=== PATIENT | male | born 1970 | race Caucasian/White ===

== ENCOUNTER 2018-09-09 18:08 | Emergency (ER) | payer OTHER ==
[~2018-09-09] VITALS: Ht 185.4 cm; Wt 86.4 kg
[2018-09-09 18:14] VITALS: Ht 185.4 cm; Wt 86.4 kg
[2018-09-09] MEDS ORDERED: AUGMENTIN 875-11 TAB PO (18:59)
[2018-09-09] MEDS ORDERED: CIPRODEX OTIC7.5 ML LEFT EAR (18:59)
[2018-09-09 19:12] VITALS: BP 149/95
== END 2018-09-09 19:13 | disposition home or self-care (01) ==
LOC: D.ER 18:08
DX: H60.502 Unspecified acute noninfective otitis externa, left ear (principal); H66.92 Otitis media, unspecified, left ear; F17.200 Nicotine dependence, unspecified, uncomplicated

== ENCOUNTER → 2020-02-24 13:35 | Outpatient (CLI) | payer MEDICAID ==
[2018-09-09 18:14] VITALS: BMI 25.1
[~2020-02-24 13:35] MED LIST: AUGMENTIN 875-11 TAB PO; CIPRODEX OTIC7.5 ML LEFT EAR
== END | disposition home or self-care (01) ==
LOC: D.US 13:35
PROVIDERS: ATTEND Family Medicine
DX: R60.0 Localized edema (principal)

== ENCOUNTER → 2020-03-15 09:53 | Outpatient (CLI) | payer MEDICAID ==
[2018-09-09 18:14] VITALS: BMI 25.1
[2020-03-15 10:20] LABS: BASOPHILS 0.3 % (0-2); EOSINOPHILS 1.3 % (0-7); HEMATOCRIT 43.6 % (42.0-54.0); HEMOGLOBIN 15.5 g/dL (13.5-17.5); IMMATURE GRANULOCYTES 0.2 % (0-5); LYMPHOCYTES 29.8 % (15-50); MCHC 35.6 g/dL (31.0-37.0); MCV 92.8 fL (80.0-100.0); MEAN PLATELET VOLUME 9.4 fL (7.4-10.4); MONOCYTES 6.7 % (2-11); NEUTROPHILS 61.7 % (40-80); PLATELET COUNT 154 10x3/uL (130-400); RDW 12.7 % (11.5-14.5); WBC 10.4 10x3/uL (4.8-10.8)
[2020-03-15 10:51] LABS: ALBUMIN 3.8 g/dL (3.4-5.0); ANION GAP 10.5 mmol/L (8-16); BILIRUBIN - TOTAL 1.02 mg/dL (0.2-1.3); CALCIUM 8.9 mg/dL (8.5-10.1); CARBON DIOXIDE 27.5 mmol/L (21.0-32.0); CHOL - HDL RATIO 5.7 ratio (2.3-4.9); CREATININE - SERUM 1.2 mg/dL (0.6-1.3); LDL-HDL RATIO 2.9 ratio (1.5-3.5); PROTEIN - SERUM 7.3 g/dL (6.4-8.2); THYROID STIMULATING HORMONE 2.6 uIU/mL (0.36-3.74)
== END | disposition home or self-care (01) ==
LOC: D.LAB 09:53
PROVIDERS: ATTEND Family Medicine
DX: I10 Essential (primary) hypertension (principal); R60.0 Localized edema; R07.9 Chest pain, unspecified; Z00.01 Encounter for general adult medical examination with abnormal findings; Z12.5 Encounter for screening for malignant neoplasm of prostate

== ENCOUNTER → 2020-03-21 10:09 | Outpatient (CLI) | payer MEDICAID ==
[2018-09-09 18:14] VITALS: BMI 25.1
== END | disposition home or self-care (01) ==
LOC: D.CT 10:09
PROVIDERS: ATTEND Family Medicine
DX: R59.0 Localized enlarged lymph nodes (principal)

== ENCOUNTER 2020-05-16 12:06 | Emergency (ER) | payer MEDICAID ==
[~2020-05-16] VITALS: Ht 185.4 cm; Wt 84.1 kg
[2020-05-16 12:21] VITALS: Ht 185.4 cm; Wt 84.1 kg
[2020-05-16] MEDS ORDERED: HTN MED? (12:24)
[2020-05-16 14:18] LABS: BASOPHILS 0.4 % (0-2); EOSINOPHILS 0.3 % (0-7); HEMATOCRIT 37.5 % (42.0-54.0); HEMOGLOBIN 13.7 g/dL (13.5-17.5); IMMATURE GRANULOCYTES 0.3 % (0-5); LYMPHOCYTES 16.4 % (15-50); MCH 33.6 pg (26.0-34.0); MCHC 36.5 g/dL (31.0-37.0); MCV 91.9 fL (80.0-100.0); MEAN PLATELET VOLUME 9.8 fL (7.4-10.4); MONOCYTES 6.7 % (2-11); NEUTROPHILS 75.9 % (40-80); PLATELET COUNT 141 10x3/uL (130-400); RBC 4.08 10x6/uL (4.20-6.10); RDW 12.7 % (11.5-14.5); WBC 7.9 10x3/uL (4.8-10.8)
[2020-05-16 14:47] LABS: ALBUMIN 3.8 g/dL (3.4-5.0); ALKALINE PHOSPHATASE 107 U/L (30-120); ALT (SGPT) 117 U/L (10-68); BILIRUBIN - TOTAL 0.99 mg/dL (0.2-1.3); CALC OSMOLALITY 267 mosm/kg (275-300); CALCIUM 9.2 mg/dL (8.5-10.1); CARBON DIOXIDE 32.4 mmol/L (21.0-32.0); CHLORIDE - SERUM 95 mmol/L (98-107); CKMB 1.1 U/L (0.0-3.6); CREATINE KINASE 466 UL (21-232); CREATININE - SERUM 1.4 mg/dL (0.6-1.3); GLUCOSE 126 mg/dL (74-106); PROTEIN - SERUM 7.3 g/dL (6.4-8.2); SODIUM 133 mmol/L (136-145); UREA NITROGEN 13 mg/dL (7-18); eGFR NON AFRICAN AMERICAN 57 mL/min (90-120)
[2020-05-16 15:02] LABS: POTASSIUM - SERUM 2.7 mmol/L (3.5-5.1)
[2020-05-16 15:03] LABS: TROPONIN-I 0.107 ng/mL (0.000-0.060)
[2020-05-16] MEDS ORDERED: HYDROCHLOROTH12.5 M1 PO (16:31)
[2020-05-16] MEDS ORDERED: AVAPRO150 MG PO (16:31)
[2020-05-16] MEDS ORDERED: HYDROCODON-ACE1 EA10 PO (17:56)
[2020-05-16 19:22] VITALS: BP 133/93
== END 2020-05-16 18:35 | disposition home or self-care (01) ==
LOC: D.ER 12:06
PROVIDERS: Emergency Medicine
DX: R07.89 Other chest pain (principal); I10 Essential (primary) hypertension; Z72.0 Tobacco use